=== PATIENT | female | born 1935 | race Caucasian/White ===

== ENCOUNTER → 2017-12-14 | Outpatient (CLI) | payer MEDICARE, BC | END | disposition home or self-care (01) | LOC: CARD 12:18 | PROVIDERS: ATTEND Internal Medicine Cardiovascular Disease | DX: R06.02 Shortness of breath (principal) | CPT/HCPCS: 94060; 94726; 94729 ==

== ENCOUNTER → 2018-05-18 | Outpatient (CLI) | payer MEDICARE, BC | END | disposition home or self-care (01) | LOC: RAD 11:54 | PROVIDERS: ATTEND Internal Medicine | DX: J84.10 Pulmonary fibrosis, unspecified (principal); R91.8 Other nonspecific abnormal finding of lung field; I25.10 Atherosclerotic heart disease of native coronary artery without angina pectoris | CPT/HCPCS: 71250 ==

== ENCOUNTER 2020-01-28 15:17 | Emergency (ER) | payer MEDICARE, BC ==
[~2020-01-28] VITALS: Ht 147.3 cm; Wt 68.0 kg
--- NOTE | 2020-01-28 15:46 | NUR ---
misa. report received from [facility]. pt c/o ruq abd pain/r sided spine pain/back of head pain x 3 days. pt fell and hit on head for 1-2 months ago. pt incontinent of urine for a while. pt's aox4. resps even and unlabored. bp/spo2 monitors in place. call light within reach. edmd at bedside to evaluate at this time.
[2020-01-28] MEDS ORDERED: SODIUM CHLORIDE FLUSH 10ML SYR IVF ONE (16:00)
[2020-01-28 16:20] LABS: BASOPHILS # (AUTO) 0.05 x10^3/uL (0-0.1); BASOPHILS % (AUTO) 1 % (0-1); EOSINOPHILS # (AUTO) 0.36 x10^3/uL (0-0.4); EOSINOPHILS % (AUTO) 4 % (1-7); LYMPHOCYTES % (AUTO) 31 % (22-44); MD NO; MEAN CORPUSCULAR HEMOGLOBIN 30.5 pg (27.0-34.8); MEAN CORPUSCULAR HGB CONC 33.1 g/dL (32.4-35.8); MEAN CORPUSCULAR VOLUME 92.4 fL (80-100); MEAN PLATELET VOLUME 7.7 fL (7.4-10.4); MONOCYTES % (AUTO) 8 % (2-9); NEUTROPHILS # (AUTO) 4.68 x10^3/uL (1.8-6.8); NEUTROPHILS % (AUTO) 56 % (42-75); PLATELET COUNT 293 x10^3/uL (130-400); RED BLOOD COUNT 5.03 x10^6/uL (3.82-5.3); RED CELL DISTRIBUTION WIDTH 13.5 % (9.6-15.2)
[2020-01-28 16:25] LABS: ALBUMIN 3.6 g/dL (3.4-5.0); ANION GAP 5 mmol/L (5-15); CALCIUM 9.6 mg/dL (8.5-10.1); CHLORIDE 107 mmol/L (98-107)
--- NOTE | 2020-01-28 16:25 | NUR ---
pt resting in [facility]. pt's aox4. resps even and unlabored. bp/spoe monitors in place. call light within reach. rails up x2.
[2020-01-28 16:29] LABS: ALANINE AMINOTRANSFERASE 19 U/L (12-78); ALKALINE PHOSPHATASE 64 U/L (45-117); BILIRUBIN,TOTAL 0.7 mg/dL (0.2-1.0); CREATININE 0.76 mg/dL (0.55-1.02); TOTAL PROTEIN 7.3 g/dL (6.4-8.2)
[2020-01-28 17:37] VITALS: BP 129/64
[2020-01-28] MEDS ORDERED: OMNIPAQUE 350 MG/ML, 100ML BOTTLE ONE (17:37)
--- NOTE | 2020-01-28 17:37 | NUR ---
PT BACK TO ROOM FROM CT. PT'S AOX4. RESPS EVEN AND UNLABORED.
--- NOTE | 2020-01-28 18:21 | NUR ---
Patient given discharge instructions and they have confirmed that they understand the instructions.
== END 2020-01-28 18:22 | disposition home or self-care (01) ==
LOC: ED 16:17
DX: S29.012A Strain of muscle and tendon of back wall of thorax, initial encounter (principal); S20.211A Contusion of right front wall of thorax, initial encounter; S09.90XA Unspecified injury of head, initial encounter; R91.1 Solitary pulmonary nodule; W18.30XA Fall on same level, unspecified, initial encounter; Y93.89 Activity, other specified; Y92.009 Unspecified place in unspecified non-institutional (private) residence as the place of occurrence of the external cause; Y99.8 Other external cause status
CPT/HCPCS: 36415; 70450; 71260; 72125; 74177; 80053; 85025; 99285; Q9967

== ENCOUNTER 2020-02-04 15:05 | Emergency (ER) | payer MEDICARE, BC ==
[~2020-02-04] VITALS: Ht 149.9 cm; Wt 69.6 kg
--- NOTE | 2020-02-04 16:02 | NUR ---
THIS IS A 84 YO F W/ C/O RT FLANK PAIN, PAINFUL URINATIOIN AND URINARY FREQUENCY. PT REPORTS RECENT UTI FOR WHICH SHE HAS BEEN TAKING CEPHELEXIN. PT REPORTS NO RELIEF IN SYMPTOMS. URINE COLLECTED AND SENT TO LAB. PT IS RESTING ON GURNEY W/ CALL LIGHT IN REACH AND FAMILY AT BEDSIDE. AWAITING ORDERS.
[2020-02-04 16:14] LABS: BASOPHILS % (AUTO) 1 % (0-1); EOSINOPHILS % (AUTO) 4 % (1-7); LYMPHOCYTES # (AUTO) 2.23 x10^3/uL (1-3.4); LYMPHOCYTES % (AUTO) 22 % (22-44); MD NO; MEAN CORPUSCULAR HEMOGLOBIN 30.8 pg (27.0-34.8); MEAN CORPUSCULAR HGB CONC 33.9 g/dL (32.4-35.8); MEAN PLATELET VOLUME 7.4 fL (7.4-10.4); MONOCYTES # (AUTO) 0.82 x10^3/uL (0.2-0.8); MONOCYTES % (AUTO) 8 % (2-9); NEUTROPHILS % (AUTO) 65 % (42-75); PLATELET COUNT 264 x10^3/uL (130-400); RED BLOOD COUNT 4.88 x10^6/uL (3.82-5.3); RED CELL DISTRIBUTION WIDTH 13.7 % (9.6-15.2)
[2020-02-04 16:18] VITALS: BP 117/60
--- NOTE | 2020-02-04 16:18 | NUR ---
PT RESTING ON GURNEY CONNECTED TO MONITORING, AWAITING TEST RESULTS.
[2020-02-04 16:19] LABS: MICROSCOPIC AUTO
[2020-02-04 16:20] LABS: CULTURE INDICATED? YES
[2020-02-04 16:26] LABS: ALBUMIN 3.5 g/dL (3.4-5.0); ANION GAP 6 mmol/L (5-15); CALCIUM 9.3 mg/dL (8.5-10.1); CHLORIDE 107 mmol/L (98-107); CREATININE 0.85 mg/dL (0.55-1.02)
--- NOTE | 2020-02-04 16:48 | NUR ---
IN ROOM FOR RECHECK.
[2020-02-04] MEDS ORDERED: CEFTRIAXONE 1,000 MG ONE (16:51)
[2020-02-04] MEDS ORDERED: LIDOCAINE-MPF 1%, 2ML ONE (16:51)
--- NOTE | 2020-02-04 16:57 | NUR ---
PT MEDICATED PER [facility]. ALL TESTS RESULTED.
[2020-02-04] MEDS ORDERED: CEFTRIAXONE 1,000 MG IM ONE (17:00)
--- NOTE | 2020-02-04 17:46 | NUR ---
Patient given discharge instructions and they have confirmed that they understand the instructions. Patient ambulatory with steady gait.
[2020-02-13] MEDS ORDERED: DULA1.5P SC (12:32)
[2020-02-13] MEDS ORDERED: CEFD300C37 PO (12:32)
[2020-02-13] MEDS ORDERED: LINA5TAB PO (12:32)
[2020-02-13] MEDS ORDERED: LORA10CA PO (12:32)
[2020-02-13] MEDS ORDERED: ASPI-496 PO (12:32)
[2020-02-13] MEDS ORDERED: INSU100I11 SC (12:32)
== END 2020-02-04 17:51 | disposition home or self-care (01) ==
LOC: ED 16:38
DX: N30.00 Acute cystitis without hematuria (principal); R10.9 Unspecified abdominal pain; E11.9 Type 2 diabetes mellitus without complications; Z87.891 Personal history of nicotine dependence
CPT/HCPCS: 36415; 80048; 81001; 82040; 85025; 87086; 96372; 99283; J0696

== ENCOUNTER 2020-02-14 08:00 | Observation (INO) | payer MEDICARE, BC ==
[~2020-02-14] VITALS: Ht 148.6 cm; Wt 66.0 kg
[~2020-02-14 08:00] MED LIST: ASPI-496 PO; CEFD300C37 PO; DULA1.5P SC; INSU100I11 SC; LINA5TAB PO; LORA10CA PO
[2020-02-14] MEDS ORDERED: CHLORHEXIDINE 15 ML UDC MM STA (08:29)
[2020-02-14] MEDS ORDERED: LACTATED RINGERS 1,000 ML IV ONE (08:29)
[2020-02-14 08:30] VITALS: BP 138/82
[2020-02-14] MEDS ORDERED: ROCURONIUM 10 MG/ML,10ML ONE (12:37)
[2020-02-14] MEDS ORDERED: PROPOFOL 10 MG/ML, 20ML ONE (12:37)
[2020-02-14] MEDS ORDERED: GLYCOPYRROLATE 0.2MG/1ML, 5ML ONE (12:37)
[2020-02-14] MEDS ORDERED: NEOSTIGMINE 1 MG/ML, 10ML ONE (12:37)
[2020-02-14] MEDS ORDERED: hydrALAzine 20 MG/ML, 1ML IV PRN (13:00)
[2020-02-14] MEDS ORDERED: HYDROmorphone 2 MG/ML, 1ML IVPush PRN (13:00)
[2020-02-14] MEDS ORDERED: OXYcodone 5 MG/5 ML ORAL.SOL UDC PO PRN (13:00)
[2020-02-14] MEDS ORDERED: HALOPERIDOL 5 MG/ML IV PRN (13:00)
[2020-02-14] MEDS ORDERED: FENTANYL PF 100 MCG/2ML IV PRN (13:00)
[2020-02-14] MEDS ORDERED: PROMETHAZINE 25 MG/ML, 1ML IV PRN (13:00)
[2020-02-14] MEDS ORDERED: MEPERIDINE/PF 25MG/ML,1ML IVPush PRN (13:00)
[2020-02-14] MEDS ORDERED: LABETALOL 5MG/ML, 20ML IV PRN (13:00)
[2020-02-14] MEDS ORDERED: MORPHINE SULFATE 4 MG/ML, 1ML IVPush PRN (13:00)
[2020-02-14] MEDS ORDERED: ONDANSETRON 2MG/ML, 2ML ONE ×2 (13:03→14:59)
[2020-02-14] MEDS ORDERED: FENTANYL PF 250 MCG/5ML ONE (13:03)
[2020-02-14] MEDS ORDERED: SUGAMMADEX 200 MG/2 ML IVPush ONE (13:37)
[2020-02-14] MEDS ORDERED: ONDANSETRON 2MG/ML, 2ML IVPush ONE (15:00)
[2020-02-14] MEDS ORDERED: LIDOCAINE 1%, 10ML ONE (15:07)
[2020-02-14] MEDS ORDERED: ACETAMINOPHEN 325 MG TABLET PO PRN (15:30)
[2020-02-14] MEDS ORDERED: IBUPROFEN 600 MG TABLET PO PRN (15:30)
[2020-02-14] MEDS ORDERED: ONDANSETRON ODT 4 MG PO PRN (15:30)
[2020-02-14] MEDS ORDERED: CYCLOBENZAPRINE 10 MG TABLET PO PRN (15:30)
[2020-02-14] MEDS ORDERED: DEXTROSE 50%, 50ML SYRINGE IVPush PRN (16:00)
[2020-02-14] MEDS ORDERED: INSULIN REGULAR 100 UNITS/ML, 3ML VIAL SQ-INSULIN SCH (16:00)
[2020-02-14] MEDS ORDERED: DEXTROSE 4 GM TAB.CHEW PO PRN (16:00)
[2020-02-14] MEDS ORDERED: GLUCAGON 1 MG IM PRN (16:00)
[2020-02-14 16:15] VITALS: BP 126/71
[2020-02-14] MEDS ORDERED: CEFTRIAXONE PMX 1GM/50ML 50 ML IV SCH (17:00)
[2020-02-14] MEDS: HEPARIN 5,000 UNITS/ML, 1ML SQ SCH (17:16)
[2020-02-14] MEDS: KETOROLAC 30 MG/1 ML IV PRN (17:16)
[2020-02-14 17:19] LABS: BASOPHILS # (AUTO) 0.07 x10^3/uL (0-0.1); BASOPHILS % (AUTO) 1 % (0-1); EOSINOPHILS # (AUTO) 0.34 x10^3/uL (0-0.4); EOSINOPHILS % (AUTO) 3 % (1-7); LYMPHOCYTES # (AUTO) 1.57 x10^3/uL (1-3.4); LYMPHOCYTES % (AUTO) 13 % (22-44); MD NO; MEAN CORPUSCULAR HEMOGLOBIN 30.9 pg (27.0-34.8); MEAN CORPUSCULAR HGB CONC 33.5 g/dL (32.4-35.8); MEAN CORPUSCULAR VOLUME 92.2 fL (80-100); MEAN PLATELET VOLUME 7.4 fL (7.4-10.4); MONOCYTES # (AUTO) 0.84 x10^3/uL (0.2-0.8); MONOCYTES % (AUTO) 7 % (2-9); NEUTROPHILS # (AUTO) 9.49 x10^3/uL (1.8-6.8); NEUTROPHILS % (AUTO) 77 % (42-75); PLATELET COUNT 273 x10^3/uL (130-400); RED BLOOD COUNT 4.77 x10^6/uL (3.82-5.3); RED CELL DISTRIBUTION WIDTH 13.8 % (9.6-15.2)
[2020-02-14 17:25] LABS: ANION GAP 7 mmol/L (5-15); CALCIUM 8.9 mg/dL (8.5-10.1); CHLORIDE 108 mmol/L (98-107); CREATININE 0.75 mg/dL (0.55-1.02)
[2020-02-14] MEDS: INSULIN LISPRO 100 UNITS/ML, PEN SQ-INSULIN SCH ×2 (17:47→21:20)
[2020-02-14] MEDS: morphine SULFATE 10 MG/ML, 1ML IVPush PRN ×2 (20:44→21:18)
[2020-02-14] MEDS: FAMOTIDINE 20 MG TABLET PO SCH (20:44)
[2020-02-14 20:55] VITALS: BP 117/57
[2020-02-14] MEDS ORDERED: INSULIN LISPRO 100 UNITS/ML, PEN SQ-INSULIN SCH ×2 (21:00)
[2020-02-14] MEDS: SODIUM CHLORIDE FLUSH 10ML SYR IVF SCH ×2 (21:20)
[2020-02-15] MEDS: HEPARIN 5,000 UNITS/ML, 1ML SQ SCH ×3 (00:25→16:30)
[2020-02-15] MEDS: morphine SULFATE 10 MG/ML, 1ML IVPush PRN (00:26)
[2020-02-15 01:56] VITALS: BP 104/58
[2020-02-15 04:49] VITALS: BP 100/56
[2020-02-15 06:32] VITALS: BP 94/53
[2020-02-15] MEDS: INSULIN LISPRO 100 UNITS/ML, PEN SQ-INSULIN SCH ×3 (08:21→16:00)
[2020-02-15] MEDS: SODIUM CHLORIDE FLUSH 10ML SYR IVF SCH ×2 (08:21→08:22)
[2020-02-15] MEDS: FAMOTIDINE 20 MG TABLET PO SCH (08:22)
[2020-02-15] MEDS: KETOROLAC 30 MG/1 ML IV PRN (08:36)
[2020-02-15] MEDS ORDERED: ASPIRIN 81 MG TABLET EC PO SCH (09:00)
[2020-02-15] MEDS ORDERED: SENNA/DOCUSATE TABLET PO SCH (09:00)
[2020-02-15 13:31] VITALS: BP 116/65
[2020-02-15] MEDS ORDERED: INSULIN LISPRO 100 UNITS/ML, PEN SQ-INSULIN SCH (21:00)
== END 2020-02-15 17:09 | disposition home or self-care (01) ==
LOC: OUT 08:00 → ORIP 15:33 → INTOOBSV 15:33 → 4NE 16:00
PROVIDERS: ADMIT Internal Medicine; ATTEND Family Medicine
DX: J93.9 Pneumothorax, unspecified (principal); R91.8 Other nonspecific abnormal finding of lung field; J44.9 Chronic obstructive pulmonary disease, unspecified; E11.9 Type 2 diabetes mellitus without complications; G92 Toxic encephalopathy; N39.0 Urinary tract infection, site not specified; Z87.891 Personal history of nicotine dependence; Z87.440 Personal history of urinary (tract) infections; Z79.4 Long term (current) use of insulin; Z90.710 Acquired absence of both cervix and uterus
CPT/HCPCS: 31624; 31629; 32551; 32557; 71045; 71250; 76000; 80048; 82962; 83036; 83735; 84100; 85025; 87070; 87102; 87116; 87205; 87206; 88112; 88172; 88173; 88177; 88305; 93005; 96365; 96372; 96375; 96376; 99156; C1729; C1769; G0378; J0696; J1644; J1815; J1885; J2250; J2270; J2405; J2704; J2710; J3010; J3490; J7120; J2310

== ENCOUNTER 2020-02-26 06:24 | Day surgery (SDC) | payer MEDICARE, BC ==
[~2020-02-26] VITALS: Ht 147.3 cm; Wt 67.0 kg
[2020-02-26 07:25] VITALS: BP 121/73
[2020-02-26] MEDS ORDERED: SODIUM CHLORIDE 0.9% 1,000 ML IV SCH (07:28)
[2020-02-26] MEDS ORDERED: FLUMAZENIL 0.1 MG/1 ML, 5ML ONE (09:33)
[2020-02-26] MEDS ORDERED: FENTANYL PF 100 MCG/2ML ONE (09:33)
[2020-02-26] MEDS ORDERED: MIDAZOLAM 1 MG/ML, 5ML ONE (09:33)
[2020-02-26] MEDS ORDERED: NALOXONE 1 MG/ML, 2ML ONE (09:33)
== END 2020-02-26 12:30 | disposition home or self-care (01) ==
LOC: OUT 06:24
PROVIDERS: ATTEND Internal Medicine
DX: R91.1 Solitary pulmonary nodule (principal); E11.9 Type 2 diabetes mellitus without complications; I25.2 Old myocardial infarction; Z79.4 Long term (current) use of insulin; Z79.82 Long term (current) use of aspirin; Z79.899 Other long term (current) drug therapy; Z87.891 Personal history of nicotine dependence; Z88.2 Allergy status to sulfonamides; Z88.5 Allergy status to narcotic agent
CPT/HCPCS: 32405; 71045; 77012; 82962; 88305; 99156; 99157; C2613; J2250; J3010; J7030; J2310

== ENCOUNTER → 2020-03-10 | Outpatient (CLI) | payer MEDICARE, BC ==
[~2020-03-10] MED LIST changes: +GADOTERATE 7.5 MMOL/15 ML SYR ONE
== END | disposition home or self-care (01) ==
LOC: CFH 12:07
PROVIDERS: ATTEND Internal Medicine
DX: I67.82 Cerebral ischemia (principal); G31.9 Degenerative disease of nervous system, unspecified; R91.1 Solitary pulmonary nodule
CPT/HCPCS: 70553; 78816; A9552; A9575